=== PATIENT | female | born 1980 ===

== ENCOUNTER 2017-07-03 12:31 | Outpatient (CLI) | payer BC ==
[~2017-07-03] VITALS: Ht 165.1 cm; Wt 76.2 kg
[~2017-07-03 12:31] MED LIST: AMOX-362 PO; DOXY1TAB3 PO; LANS30CA63 PO; NITR-106 PO; ONDA4TAB PO; PROM-110 PO; PROM25SU8 PR
[2017-07-03 12:55] VITALS: BP 142/88; Ht 165.1 cm; Wt 76.2 kg
[2017-07-13] MEDS ORDERED: IBUP800T37 PO (08:46)
[2017-07-13] MEDS ORDERED: PER PO (08:46)
== END 2017-07-03 16:55 | disposition home or self-care (01) ==
LOC: OB 12:31 → L&D 12:31 → UNDOADMIN 12:31 → OB 12:31 → UNDODISIN 16:55 → L&D 16:55 → EDSTATUS 07-12 09:25
PROVIDERS: ATTEND Obstetrics & Gynecology
DX: O47.1 False labor at or after 37 completed weeks of gestation (principal); Z3A.38 38 weeks gestation of pregnancy
CPT/HCPCS: 99213

== ENCOUNTER → 2017-07-14 14:50 | Inpatient (IN) | payer BC ==
--- NOTE | 2016-03-30 13:55 | HISTORY AND PHYSICAL ---
DATE OF ADMISSION: [*] CHIEF COMPLAINT Perianal pain. HISTORY OF PRESENT ILLNESS This is a 35-year-old female who had a flare-up of hemorrhoids when she was and never seemed to completely resolve. She has pain with bowel movements and bleeding with bowel movements. This has been going on for 1-1/2 years. PAST SURGICAL HISTORY * Cholecystectomy. * . ALLERGIES None known. CURRENT MEDICATIONS * Currently none. REVIEW OF SYSTEMS No cardiac, pulmonary, liver, kidney disease. No diabetes, hypertension or history of deep vein thrombosis. PHYSICAL EXAMINATION GENERAL: This is a 35-year-old female in no acute distress. ANAL: Perianal examination reveals posterior anal fissure and a sentinel pile. ASSESSMENT * Chronic anal fissure. PLAN Left lateral internal sphincterotomy. We discussed the procedure, complications and recovery time. She seemed to understand and wished to proceed. BEV
[2017-07-03 12:55] VITALS: BMI 27.9
[2017-07-12] VITALS (22 sets, daily range): BP systolic 105–139; BP diastolic 67–93
--- NOTE | 2017-07-12 07:16 | Anesthesia OB Pre-Anes Eval ---
History of Present Illness Anesthesia Start Date: Jul 12, 2017 Anesthesia Start Time: 07:05 OB Anesthesia Diagnosis: repeat c/section Complications: None known EDC: Jul 13, 2017 : 5 Para: 3 Pain Ratin Heart Tones: WNL Height (Inches): 65.00 Weight (Pounds): 168 BMI Calculated: 27.95 Past Medical History Medical History: no pertinent history Surgical History: Previous Anesthesia: epidural Attended Childbirth Classes?: No Hx Anesthesia Reactions: No Hx Family Anesthesia Reaction: No Home Meds No Active Prescriptions or Reported Meds Allergies: Coded Allergies: No Known Drug Allergies (Unverified , 06/05/16) Anesthesia OB ROS ENT: Denies Tooth caps, Denies Loose teeth, Denies Chipped teeth, Denies Dentures, Denies Bridges, Denies Retainers, Denies Veneers, Denies Implants, Denies Tongue ring, Other Pulmonary: No asthma, No smoker (pks/day/yrs) Airway Class: ll Cardiovascular ROS: No edema, No arrhythmia GI ROS: NPO Last Solids Date: Jul 11, 2017 Last Solids Time: 22:00 ROS: No Herpes, No STD(s), No Liver Disease, No Renal Disease Endocrine ROS: No diabetes, No gestational diabetes, No thyroid disorder Musculoskeletal ROS: No low back pain, No low back injury, No scoliosis ASA Classification: 2 Assessment and Plan Anesthesia Plan: SAB Assessment Past Medical, Surgical, Family and Obstetric Histories reviewed. Please see ACOG chart. Spinal block risks and benefits explained to patient's satisfaction. Reviewed previous spinal experiences, no problems noted. Questions invited, none asked. YAEL GANT CRNA Jul 12, 2017 07:16
[2017-07-12] MEDS: cefOXitin/DEX(*) 2GM/50ML PREM 50 ML IVPB ONE ×2 (07:20→07:32)
--- NOTE | 2017-07-12 07:47 | History & Physical ---
History of Present Illness Age of Patient: 36 : 5 Para or TPAL: 3113 EDC per LMP: Jul 13, 2017 EDC per U/S: Jul 13, 2017 Estimated Gestational Age: 39.6 Chief Complaint Scheduled Repeat C'section History of Present Illness Pt is a 37 y/o @ 39-6/7 weeks gestation by LMP who presents to L&D with a chief complaint of "A scheduled ." Pt denies any complaints. No contractions. Good movement. No vaginal bleeding. No loss of amniotic fluid. History Patient's Blood Type: O Positive Rubella Status: Immune Group B Strep Screen: Negative Obstetrical History: Prior C/S X 3 Past Medical History: Prior c/s X 3. Cholecystectomy NKDA Allergies: Coded Allergies: No Known Drug Allergies (Unverified , 06/05/16) Social History: Denies X 3. is Vince Med Rec Home Meds No Active Prescriptions or Reported Meds Review of Systems All Systems Reviewed/Normal: Yes, Except as Noted Constitutional: No Fever, No Weight Loss, No Weight Gain, No Chills, No Night Sweats, No Other Neurological: No Syncope, No Confusion, No Weakness, No Dizziness, No Slurred Speech, No Other Eyes: No Vision Change, No Loss of Vision, No Photophobia, No Other ENT: No Hearing Loss, No Sinus Congestion, No Sore Throat, No Ear Ache, No Tinnitus, No Other Cardiovascular: No Chest Pain, No Palpitations, No Orthostatic Hypotension, No Other Respiratory: No Shortness of Breath, No Cough, No Wheezing, No Other Gastrointestinal: No Nausea, No Vomiting, No Diarrhea, No Dysphagia, No Constipation, No Early Satiety, No Hematemesis, No Hematochezia, No Melena, No Abdominal Pain, No Other Genitourinary: No Dysuria, No Hematuria, No Urinary Incontinence, No Other Musculoskeletal: No Pain, No Sprain, No Strain, No Impaired Mobility, No Other Psychiatric: No Depression, No Anxiety, No Other Exam General Exam General Apperance: Alert/Awake/No Acute Distress Neuro: No Gross deficits Eyes: Normal Extraocular Movement & Vison, PERRLA ENT: Normal Cardiovascular: Regular Rate and Rhythm Respiratory: No Respiratory Distress, Clear to Auscultation Abdomen: Soft, Non-Tender, Non-Distended, Gravid - Non-Tender : Normal Musculoskeletal: No Weakness/Pain Extremities: No Cyanosis,Clubbing or Edema Integumentary: Skin Intact without Lesions or Rash Psychological: Alert & Oriented X3, Appropriate Mood & Affect Fetus Heart Tone Variabilty: Moderate FHT Accelerations: 15X15 FHT Decelerations: None FHT Category: I Medical Decision Making Pre-Admit Course Medical Record Review: Yes VTE Prophylasis: Adult Deep Vein Thrombosis/Pulmonary: No Assessment and Plan 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 No tubal ligation. MARILIN BATRES DO Jul 12, 2017 07:47
[2017-07-12 08:14] LABS: PLATELET COUNT, AUTOMATED 204 K/uL (150-450)
--- NOTE | 2017-07-12 10:03 | Post Operative Note ---
Operative Note - [employer] Operative Day Date: Jul 12, 2017 Time: 09:51 Physicians Surgeon: Marilin Fu DO Chief Operations Officer: Guerrero Faye MD Anesthesia: Spinal Diagnosis Pre-Op Diagnosis: 36 y/o Prior C/S X3 Post-Op Diagnosis: Same Procedure Findings: Live born female @ 0852 with Apgars 9/9 Weight 3678 8#2oz. 3vc/ip. Normal tubes and ovaries bilaterally. Procedure(s): RLTCS Specimen Removed:(Maybe N/A): 0 Complications: 0 known Fluids Fluids: 1800 cc LR u/o 150 Estimated Blood Loss: 750 Dictated Date OP Note Dictated: Jul 12, 2017 Time OP Note Dictated: 10:03 MARILIN FU DO Jul 12, 2017 10:03
[2017-07-12] MEDS: KETOROLAC 30 MG/ML VIAL IVP SCH ×2 (14:05→21:52)
[2017-07-12] MEDS: DLR(*) 1000 ML BAG 1,000 ML IV PRN (18:04)
--- NOTE | 2017-07-12 19:55 | OPERATIVE REPORT 1 ---
EVENT DATE: July 12, 2017 SURGEON: Liu Fu DO ANESTHESIOLOGIST: Keely Montero CRNA ANESTHESIA: Spinal. HEALTH INSURANCE ASSESSOR: Guerrero Faye MD PREOPERATIVE DIAGNOSES 1. A 36-year-old 5, para 3-0-1-3. 2. Prior section times three. POSTOPERATIVE DIAGNOSES 1. A 36-year-old 5, para 3-0-1-3. 2. Prior section times three. 3. Delivered. PROCEDURE PERFORMED Repeat low transverse section. FINDINGS Live-born female infant at 0852 on July 12, 2017, with Apgars of 8 and 9, weighing 3678 g, 8 pounds 2 ounces. Three-vessel cord. Intact placenta. Normal tubes and ovaries bilaterally. ESTIMATED BLOOD LOSS 750 mL INTRAVENOUS FLUIDS Lactated Ringer's 1800 mL. URINE OUTPUT 150 mL PATHOLOGY None. COMPLICATIONS None known. CONDITION Stable times two. Mother and infant to the PACU and then to the floor for the remainder of the hospital course. INDICATIONS AND CONSENT The patient is a 36-year-old 5, para 3-0-1-3, at 39-6/7 weeks' gestation who presented to labor and delivery for a scheduled repeat low transverse section. The patient was counseled accordingly for a repeat . The patient understands the risks, signed the appropriate consents, and desired to proceed with delivery. DESCRIPTION OF PROCEDURE The patient was taken to the operating room where spinal anesthesia was achieved. Once anesthesia was achieved, the patient was placed in the dorsal supine position. She was then prepped and draped in the usual sterile manner. Skin testing was performed and found to be adequate to just above the umbilicus , roughly the T7-T8 dermatomal level. A Pfannenstiel skin incision was then made with a scalpel, and this was carried sharply down in a layering fashion. Once the fascia was visualized, it was notched bilaterally, and the fascial incisions were extended sharply with Martinez scissors. With the fascial incisions extended, the fascia was dissected off the rectus muscles sharply with curved Martinez scissors. This was done both superiorly and inferiorly. The rectus muscles were at midline with hemostats. The peritoneum was grasped and entered sharply with Metzenbaum scissors. The peritoneal incision was extended both superiorly and inferiorly. A bladder blade was then placed. Faroese pickups and Metzenbaum scissors were then used to create a bladder flap. The bladder blade was replaced. A low transverse incision was then created on the uterus with a scalpel. Once clear amniotic fluid was noted, the surgeon's finger was then placed inside the hysterotomy. The incision was then extended laterally bluntly with the surgeon's fingers. The bladder blade was removed. The surgeon's hand was placed inside the hysterotomy. The 's head was grasped, raised, and brought to the level of the hysterotomy with gentle fundal pressure. The 's head delivered in a controlled manner, followed by the posterior shoulder in a gentle upward motion and the anterior shoulder in a gentle downward motion with the remainder of the 's body delivering spontaneously. At this point, a live-born, vigorous female was noted. Mouth and nose were bulb suctioned. After approximately one minute from delivery, the cord was clamped times two and cut. The infant was then shown to her mother and was then given to awaiting nursery staff to be taken to the warmer to be vigorously cleaned and dried. Next, cord blood gas was obtained. The placenta delivered with manual extraction. The uterus was then exteriorized, wrapped with a wet laparotomy sponge, and cleaned of all clot and debris. A 0 Monocryl was then used to close the hysterotomy in a running manner. There was some bleeding at the midline of the hysterotomy, so it was decided to do an imbrication stitch. This was also performed with a 0 Monocryl. With hemostasis noted of the hysterotomy, the posterior gutter was then cleaned of all clot and debris. The uterus was then placed back inside the abdomen. The right and left gutters were then cleaned of all clot and debris. The hysterotomy was once again inspected and found to be hemostatic. At this point, the peritoneum was grasped with hemostats, and the peritoneum was closed in a running manner. The muscles were inspected and found to be hemostatic. At this point, the fascia was closed with a 0 looped PDS in a running manner. The subcutaneous tissue was greater than 2 cm, so it was closed with a 3-0 Monocryl in a running manner. The skin was then closed with 4-0 Monocryl in a subcuticular manner. The skin then had Dermabond placed over the incision. The patient was then cleaned. She was then transferred to the recovery room in stable condition. BEV
[2017-07-12] MEDS: DOCUSATE CALCIUM 240 MG CAP PO SCH (21:51)
[2017-07-12] MEDS: FAMOTIDINE 20 MG TAB PO SCH (21:51)
[2017-07-13] MEDS: DLR(*) 1000 ML BAG 1,000 ML IV PRN (01:55)
[2017-07-13 03:55] VITALS: BP 119/87
[2017-07-13] MEDS: KETOROLAC 30 MG/ML VIAL IVP SCH (04:08)
[2017-07-13 06:56] LABS: PLATELET COUNT, AUTOMATED 181 K/uL (150-450)
[2017-07-13 07:59] VITALS: BP 127/84
--- NOTE | 2017-07-13 08:46 | OB/GYN Discharge Summary ---
Discharge Summary Reason for Hosp/Final Diag: (1) 39 weeks gestation of (2) History of 3 sections Hospital Course & Plan: Pt presented for RLTCS. Underwent procedure with out any difficulty. See operative report for details of procedure. Pt remained in the hospital for 2 days post operatively and desired to be discharged. She was ambulatory, voiding, , and tolerating regular diet with out any difficulty. Lates Vital Signs Vital Signs Date Time Temp Pulse Resp B/P (MAP) Pulse Ox O2 Delivery O2 Flow Rate FiO2 07/13/17 07:59 98.7 68 16 127/84 (98) 95 Room Air Weight (Pounds): 168 Result Diagram: 07/13/17 0646 Condition: Improved Discharge: Home Home Meds Active Scripts Ibuprofen (IBUPROFEN) 800 Mg Tablet, 800 MG PO 0200,1000,1800, #30 TAB 0 Refills Prov:MARILIN BATRES DO 07/13/17 Oxycodone/Acetaminophen (OXYCODONE/ACETAMINOPHEN 5MG/325 MG) 5 Mg/325 Mg Tab, 1- 2 TAB PO Q4H Y for PAIN, #40 TAB 0 Refills Prov:MARILIN BATRES DO 07/13/17 [facility] [phone], Dr. Bartes [phone] Follow up in: 2 wks PO Discharge Diet: As Tolerates, Resume Prior Admit Diet, Increase Fluid Intake Discharge Activity: As Tolerates, Pelvic Rest MARILIN BATRES DO Jul 13, 2017 08:46
--- NOTE | 2017-07-13 08:48 | OB/GYN Progress Note ---
OB Subjective Progress Notes Subjective Doing good this morning. Reports pain controlled with PO pain medications. Ambulatory in room only. Tolerating regular diet. Just had fernandez catheter removed. Lochia appropriate. . GI: NEG Nausea, NEG Vomiting, NEG Flatus, NEG Bowel Movement Pain: Mild, Tolerating PO Pain Meds Neurological: No Headache, No Other Eyes: No Visual Disturbances OB Objective Physical Exam Vital Signs Date Time Temp Pulse Resp B/P (MAP) Pulse Ox O2 Delivery O2 Flow Rate FiO2 07/13/17 07:59 98.7 68 16 127/84 (98) 95 Room Air Intake and Output 07/14/17 07:00 Output Total 800 ml Balance -800 ml Output Urine Total 800 ml General Appearance: Alert/Awake/No Acute Distress Neurological: No Gross deficits Eyes: Normal Extraocular Movement & Vison, PERRLA Respiratory: No Respiratory Distress, Clear to Auscultation Extremities: No Cyanosis,Clubbing or Edema Integumentary: Skin Intact without Lesions or Rash Psychological: Alert & Oriented X3, Appropriate Mood & Affect Result Diagram: 07/13/17 0646 Assessment and Plan Problems: (1) 39 weeks gestation of (2) History of 3 sections Assessment & Plan: POD #1. Doing good. Will continue current management. Expect discharge POD #2. MARILIN BATRES DO Jul 13, 2017 08:48
[2017-07-13] MEDS: DOCUSATE CALCIUM 240 MG CAP PO SCH ×2 (08:51→21:31)
[2017-07-13] MEDS: FAMOTIDINE 20 MG TAB PO SCH ×2 (08:51→21:31)
[2017-07-13] MEDS: IBUPROFEN 800 MG TAB PO SCH ×2 (10:10→18:12)
[2017-07-13 12:28] VITALS: BP 136/85
[2017-07-13] MEDS: ACETAMINOPHEN 325 MG TAB PO PRN ×2 (12:41→20:24)
[2017-07-13 18:03] VITALS: BP 137/96
[2017-07-13 19:55] VITALS: BP 132/97
[2017-07-14 00:25] VITALS: BP 128/80
[2017-07-14] MEDS: IBUPROFEN 800 MG TAB PO SCH ×2 (01:40→09:27)
[2017-07-14 03:35] VITALS: BP 115/77
[2017-07-14 07:15] VITALS: BP 133/87
[2017-07-14] MEDS: DOCUSATE CALCIUM 240 MG CAP PO SCH (08:55)
[2017-07-14] MEDS: FAMOTIDINE 20 MG TAB PO SCH (08:55)
--- NOTE | 2017-07-14 09:12 | OB/GYN Progress Note ---
OB Subjective Progress Notes Subjective Doing good this morning. Tolerating regular diet. Ambulatory. Voiding with out any difficulty. . Desires to be discharged home. GI: NEG Nausea, NEG Vomiting, NEG Flatus, NEG Bowel Movement : Voiding Well, Vaginal Bleeding, Moderate Pain: Mild, Tolerating PO Pain Meds Neurological: No Headache, No Other Eyes: No Visual Disturbances OB Objective Physical Exam Vital Signs Date Time Temp Pulse Resp B/P (MAP) Pulse Ox O2 Delivery O2 Flow Rate FiO2 07/14/17 07:15 97.9 54 14 133/87 (102) 94 Room Air General Appearance: Alert/Awake/No Acute Distress Neurological: No Gross deficits Eyes: Normal Extraocular Movement & Vison, PERRLA Cardiovascular: Normal Rhythm & Peripheral Pulses, Regular Rate and Rhythm Respiratory: No Respiratory Distress, Clear to Auscultation Incision: Clean, Dry, Intact, Dermabond : Normal Musculoskeletal: No Weakness/Pain Extremities: No Cyanosis,Clubbing or Edema Integumentary: Skin Intact without Lesions or Rash Psychological: Alert & Oriented X3, Appropriate Mood & Affect Result Diagram: 07/13/17 0646 Assessment and Plan 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 Plan for discharge home. Follow up in 2 weeks. MARILIN BATRES DO Jul 14, 2017 09:12
--- NOTE | 2017-07-14 11:53 | Anesthesia Post Eval Note ---
Anesthesia Post Eval Note Vital Signs Date Time Temp Pulse Resp B/P (MAP) Pulse Ox O2 Delivery O2 Flow Rate FiO2 07/14/17 07:15 97.9 54 14 133/87 (102) 94 Room Air Pt able to participate in Eval: Yes Cardiovascular Status: Satisfactory Respiratory Status: Satisfactory Pain Managment: Satisfactory PO Nausea/Vomiting: Satisfactory Temperature Management: Satisfactory Mental Status: Satisfactory, Alert, Oriented X3 Post-Op Hydration Status: Satisfactory, Tolerating PO Well, Voiding w/o Difficulty Anesthesia Type: CSE Anesthesia Tolerance: Tolerated procedure well without apparent anesthetic complications. LP site clear, no redness or edema. Denies any residual paresthesia. Vital Signs Stable, Patient comfortable and condition stable. States she had a headache yesterday, but gone today. States her blood pressure was elevated yesterday and thinks that may have caused some of the headache. Instructed to notify health care analyst if symptoms of "spinal headache" happen after discharge. Symptoms of spinal headache discussed. YAEL GANT CRNA Jul 14, 2017 11:53
[~2017-07-14 14:50] MED LIST changes: +DIPHTH/TETANUS/ACEL. PERTUSSIS IM ONLY ONE; +DLR(*) 1000 ML BAG 1,000 ML IV PRN; +FAMOTIDINE 20 MG TAB PO ONE; +FAMOTIDINE 20 MG/50 ML PREMIX IVPB ONE; +IBUP800T37 PO; +IBUPROFEN 800 MG TAB PO SCH; +INFLUENZA VIRUS VAC 0.5 ML SYR IM ONLY ONE; +KETOROLAC 30 MG/ML VIAL ONE; +LANOLIN OINT 7 GM TUBE TP PRN; +LIDOCAINE/SOD BICARB 8.4% SYR ID ONE; +LR(*) 1000 ML BAG 1,000 ML IV PRN; +LR(*) 1000 ML BAG 1,000 ML IV SCH; +MEASLES,MUMP,RUBELLA VAC 0.5ML SUBQ ONE; +METOCLOPRAMIDE 10 MG/2 ML SDV IVP ONE; +MIDAZOLAM 2 MG/2 ML VIAL IVP PRN; +MORPHINE PF 5 MG/10 ML AMP ONE; +NALBUPHINE HCL 10 MG/ML AMP IVP PRN; +NALOXONE HCL 0.4 MG/ML VIAL IV PRN; +ONDANSETRON 4 MG/2 ML VIAL IV PRN; +ONDANSETRON 4 MG/2 ML VIAL IVP PRN; +ONDANSETRON 4 MG/2 ML VIAL ONE; +OXYTOCIN 10 UNIT/ML SDV ONE; +OXYTOCIN 30 UNIT/D5LR 500 ML 500 ML IV PRN; +PER PO; +PHENYLEPHRINE/NS/PF 0.4MG/10ML ONE; +PROMETHAZINE 25 MG/ML 1 ML AMP IVP PRN; +SIMETHICONE 80 MG CHEW CHEW PRN; +ZOLPIDEM TARTRATE 5 MG TAB PO PRN; +ceFAZolin(*) 2GM/D5W 50ML 50 ML IVPB ONE; +fentaNYL CITR 100 MCG/2 ML AMP ONE
== END | disposition home or self-care (01) | DRG 766 ==
LOC: OR 07-12 06:55 → OB 07-12 06:59 → EDSTATUS 07-12 09:25
PROVIDERS: ADMIT Student in an Organized Health Care Education/Training Program; ATTEND Obstetrics & Gynecology
PROC: 10D00Z1 Extraction of Products of Conception, Low, Open Approach (ICD-10-PCS; principal; 2017-07-12 09:25)
DX: O34.211 Maternal care for low transverse scar from previous cesarean delivery (principal); Z37.0 Single live birth; Z3A.39 39 weeks gestation of pregnancy; Z90.49 Acquired absence of other specified parts of digestive tract
CPT/HCPCS: 36415; 85025; 86850; 86900; 86901; J0690; J0694; J1885; J2270; J2370; J2405; J2590; J2765; J3010; J3490; J7120

== ENCOUNTER → 2018-03-05 | Outpatient (CLI) | payer BC ==
[2017-07-03 12:55] VITALS: BMI 27.9
[~2018-03-05] MED LIST changes: +AMOX-556 PO; -DIPHTH/TETANUS/ACEL. PERTUSSIS IM ONLY ONE; -DLR(*) 1000 ML BAG 1,000 ML IV PRN; -FAMOTIDINE 20 MG TAB PO ONE; -FAMOTIDINE 20 MG/50 ML PREMIX IVPB ONE; -IBUPROFEN 800 MG TAB PO SCH; -INFLUENZA VIRUS VAC 0.5 ML SYR IM ONLY ONE; -KETOROLAC 30 MG/ML VIAL ONE; -LANOLIN OINT 7 GM TUBE TP PRN; -LIDOCAINE/SOD BICARB 8.4% SYR ID ONE; -LR(*) 1000 ML BAG 1,000 ML IV PRN; -LR(*) 1000 ML BAG 1,000 ML IV SCH; -MEASLES,MUMP,RUBELLA VAC 0.5ML SUBQ ONE; -METOCLOPRAMIDE 10 MG/2 ML SDV IVP ONE; -MIDAZOLAM 2 MG/2 ML VIAL IVP PRN; -MORPHINE PF 5 MG/10 ML AMP ONE; -NALBUPHINE HCL 10 MG/ML AMP IVP PRN; -NALOXONE HCL 0.4 MG/ML VIAL IV PRN; -ONDANSETRON 4 MG/2 ML VIAL IV PRN; -ONDANSETRON 4 MG/2 ML VIAL IVP PRN; -ONDANSETRON 4 MG/2 ML VIAL ONE; -OXYTOCIN 10 UNIT/ML SDV ONE; -OXYTOCIN 30 UNIT/D5LR 500 ML 500 ML IV PRN; -PHENYLEPHRINE/NS/PF 0.4MG/10ML ONE; -PROMETHAZINE 25 MG/ML 1 ML AMP IVP PRN; +SERT-1 PO; -SIMETHICONE 80 MG CHEW CHEW PRN; +SULF1TAB24 PO; +VALA500T66 PO; -ZOLPIDEM TARTRATE 5 MG TAB PO PRN; -ceFAZolin(*) 2GM/D5W 50ML 50 ML IVPB ONE; -fentaNYL CITR 100 MCG/2 ML AMP ONE
== END ==
LOC: LAB 13:26
PROVIDERS: ATTEND Student in an Organized Health Care Education/Training Program
DX: F32.9 Major depressive disorder, single episode, unspecified (principal)
CPT/HCPCS: 36415; 84443

== ENCOUNTER → 2018-12-18 | Outpatient (CLI) | payer BC ==
[2017-07-03 12:55] VITALS: BMI 27.9
[~2018-12-18] MED LIST changes: +AMOX500T10 PO; +CEFPR500PT PO; +FLUC150T40 PO; +METH4TAB66 PO; +ONDA4TAB9 PO; +VALA500T63 PO
== END ==
LOC: LAB 10:18
PROVIDERS: ATTEND Student in an Organized Health Care Education/Training Program
DX: Z34.91 Encounter for supervision of normal pregnancy, unspecified, first trimester (principal)
CPT/HCPCS: 87491; 87591